=== PATIENT | male | born 1965 | race Caucasian/White ===

== ENCOUNTER 2017-02-01 03:17 | Emergency (ER) | payer OTHER ==
[~2017-02-01 03:17] MED LIST: CLEOCIN HCL150 MG PO; DICLOXACILLIN500 MG PO; DOXYCYCLINE100 M4 PO; METFORMIN HCL1000 MG PO; NOR10T PO; NORVASC10 MG PO
[2017-02-01 05:08] VITALS: BP 130/98
== END 2017-02-01 05:08 | disposition left against medical advice (07) ==
LOC: ED 03:17
DX: Z53.21 Procedure and treatment not carried out due to patient leaving prior to being seen by health care provider (principal)

== ENCOUNTER 2018-09-05 23:12 | Emergency (ER) | payer SELFPAY ==
[2018-09-05 23:40] VITALS: Ht 172.7 cm
[2018-09-06 00:57] LABS: BASOPHIL % 0.5 % (0-2); PLATELET COUNT 243 x10^3mcL (130-400); RED CELL DISTRIBUTION WIDTH 12.9 % (11.5-14.5)
[2018-09-06 01:03] LABS: CARBON DIOXIDE 28.2 mmol/L (21-32); CHLORIDE SERUM 101 mmol/L (98-107); CREATININE SERUM 0.8 mg/dL (0.7-1.3); GFR1 > 60 mL/min; GLUCOSE SERUM 152 mg/dL (74-106); POTASSIUM SERUM 4.1 mmol/L (3.5-5.1); SODIUM SERUM 136 mmol/L (136-145)
[2018-09-06 01:20] LABS: ALBUMIN 3.8 g/dL (3.4-5.0); ALKALINE PHOSPHATASE 91 U/L (46-116); ALT/SGPT 40 U/L (16-63); AST/SGOT 24 U/L (15-37); BILIRUBIN TOTAL 1.08 mg/dL (0.20-1.00); T4(THYROXINE) 9.8 ug/dL (4.7-13.3)
[2018-09-06 06:26] VITALS: BP 145/57
== END 2018-09-06 06:26 | disposition home or self-care (01) ==
LOC: ED 23:12
PROVIDERS: Emergency Medicine
DX: F60.3 Borderline personality disorder (principal); I10 Essential (primary) hypertension; E11.9 Type 2 diabetes mellitus without complications; F17.210 Nicotine dependence, cigarettes, uncomplicated; Z71.6 Tobacco abuse counseling
CPT/HCPCS: 36415; 99406; G0480